=== PATIENT | female | born 1945 | race Caucasian/White ===

== ENCOUNTER 2017-05-18 16:58 | Emergency (ER) | payer MEDICARE, OTHER ==
[2017-05-18 17:35] VITALS: BP 174/77
--- NOTE | 2017-05-18 18:08 | EDM.PDOC ---
ED HPI GENERAL MEDICAL PROBLEM - General Chief Complaint: Genitourinary Problem Stated Complaint: POST MENOPAUSAL BLEEDING Time Seen by Provider: 05/18/17 18:00 Source of Information: Reports: Patient History Limitations: Reports: No Limitations - History of Present Illness INITIAL COMMENTS - FREE TEXT/NARRATIVE: 71 yo female presents today with onset today of vaginal bleeding that is slightly heavier than a menstrual period. No postural dizziness. Has had some dosage changes on her hormone regimen lately and has also noted some breast tenderness. Lives in [place] and [facility] here in the [facility]. Is not on anything for HTN and her BP when last checked in February was normal. Onset: Today Onset Date: 05/18/17 Duration: Hour(s): Location: Reports: Other (no pain) Quality: Reports: Other (no pain. ) Severity: Mild Improves with: Reports: None Worsens with: Reports: None Context: Reports: Other (Hormonal dosage adjustment in the last 6 weeks.) Associated Symptoms: Reports: No Other Symptoms Treatments WRISTER: Reports: Other (see below) (none) Denies Pain Score (Numeric/FACES): 0 - Related Data Allergies Allergy/AdvReac Type Severity Reaction Status Date / Time erythromycin base Allergy Cannot Verified 05/18/17 17:18 [From Ilosone] Remember lidocaine Allergy Tachycardia Verified 05/18/17 17:18 Penicillins Allergy Hives Verified 05/18/17 17:18 sulfamethoxazole Allergy Swelling Verified 05/18/17 17:18 [From Bactrim] trimethoprim [From Bactrim] Allergy Swelling Verified 05/18/17 17:18 Home Meds: Home Meds *Estriol 1 ml TOP DAILY 05/18/17 [History] *Pro/Test 0.35 ml TOP DAILY 05/18/17 [History] Past Medical History HEENT History: Reports: Impaired Vision Respiratory History: Reports: Other (See Below) Other Respiratory History: spots in lungs unchanged [facility] History: Reports: Oncologic (Cancer) History: Reports: Squamous Cell Carcinoma - Infectious Disease History Infectious Disease History: Reports: Chicken Pox, Measles, Mumps - Past Surgical History HEENT Surgical History: Reports: Adenoidectomy, Tonsillectomy, Other (See Below) Other HEENT Surgeries/Procedures: wisdom teeth removed GI Surgical History: Reports: Other (See Below) Female Surgical History: Reports: Tubal Ligation Oncologic Surgical History: Reports: Other (See Below) Other Oncologic Surgeries/Procedures: skin growth removal Dermatological Surgical History: Reports: Skin Biopsy Social & Family History - Tobacco Use Smoking Status *Q: Never Smoker Second Hand Smoke Exposure: No - Caffeine Use Caffeine Use: Reports: Soda - Recreational Drug Use Recreational Drug Use: No ED ROS GENERAL - Review of Systems Review Of Systems: See Below Constitutional: Reports: No Symptoms HEENT: Reports: No Symptoms Respiratory: Reports: No Symptoms Cardiovascular: Reports: No Symptoms Endocrine: Reports: No Symptoms GI/Abdominal: Reports: No Symptoms : Reports: Other (vaginal bleeding, painless.). Denies: Dysuria, Hematuria, Incontinence, Urgency Musculoskeletal: Reports: No Symptoms Skin: Reports: No Symptoms ED EXAM, RENAL/ - Physical Exam Exam: See Below Exam Limited By: No Limitations General Appearance: Alert, WD/WN, No Apparent Distress Eye Exam: Bilateral Eye: Normal Inspection, PERRL Ears: Normal External Exam, Normal Canal, Hearing Grossly Normal Nose: Normal Inspection, Normal Mucosa, No Blood Throat/Mouth: Normal Inspection, Normal Lips, Normal Teeth, Normal Oropharynx, Normal Voice, No Airway Compromise Head: Atraumatic, Normocephalic Neck: Normal Inspection, Supple, Non-Tender Respiratory/Chest: No Respiratory Distress, Lungs Clear, Normal Breath Sounds, No Accessory Muscle Use Cardiovascular: Regular Rate, Rhythm GI/Abdominal: Soft, Non-Tender Extremities: Normal Inspection Neurological: Alert, Oriented, CN II-XII Intact, Normal Cognition, No Motor/ Sensory Deficits Psychiatric: Normal Affect, Normal Mood Skin Exam: Warm, Dry, Intact, Normal Color, No Rash Lymphatic: No Adenopathy Course - Vital Signs Last Recorded V/S: Last Vital Signs Temp 36.3 C 05/18/17 17:36 Pulse 74 05/18/17 17:36 Resp 16 05/18/17 17:36 BP 174/77 H 05/18/17 17:36 Pulse Ox 97 05/18/17 17:36 Departure - Departure Time of Disposition: 18:08 Disposition: Home, Self-Care 01 Condition: Good Clinical Impression: Vaginal bleeding, abnormal - Discharge Information Referrals: PCP,None [Primary Care Provider] - Forms: ED Department Discharge Care Plan Goals: Follow up with [facility] as an outpatient. Return as needed.
== END 2017-05-18 18:32 | disposition home or self-care (01) ==
LOC: JP.ED 16:58
DX: N93.9 Abnormal uterine and vaginal bleeding, unspecified (principal); Z98.890 Other specified postprocedural states; Z98.51 Tubal ligation status; Z85.828 Personal history of other malignant neoplasm of skin; Z79.899 Other long term (current) drug therapy; Z88.0 Allergy status to penicillin; Z88.1 Allergy status to other antibiotic agents; Z88.8 Allergy status to other drugs, medicaments and biological substances
CPT/HCPCS: 99283; 99284